=== PATIENT | male | born 1955 ===

== ENCOUNTER 2020-11-05 02:07 | Emergency (ER) | payer OTHER, SELFPAY ==
--- NOTE | ~2020-11-05 | XR_ITS ---
EXAMINATION: XR ABDOMEN KUB CLINICAL INDICATION: Lower abdominal pain. Question constipation. COMPARISON: None TECHNIQUE: AP view of the abdomen. FINDINGS: Nonobstructive bowel gas pattern. No dilated loops of bowel. Scattered gas and stool throughout the colon with mild colonic stool burden. Stool in the rectum. No acute osseous abnormality. XR/XR KUB IMPRESSION: Mild colonic stool burden with stool in the rectum.
[2020-11-05 02:08] VITALS: BP 184/113; PULSE 91; RESP 20; TEMP 36.9; O2SAT 98; BMI 27.9
[2020-11-05 02:27] LABS: Glucose, Whole Blood 165 mg/dL (60-115)
[2020-11-05 03:04] LABS: MANUAL DIFF FLAG NO
[2020-11-05 03:07] LABS: Basophils Percent Auto 0.3 % (0-2); Eosinophils Absolute Auto 0.2 X10*3/uL (0.0-0.4); Eosinophils Percent Auto 2.8 % (0-4); Hematocrit 36.4 % (42-52); Hemoglobin 12.3 g/dl (14.0-18.0); Imm Gran Abs Auto 0.04 X10*3/uL (0.00-0.03); Imm Gran Pct Auto 0.7 % (0.0-0.4); Lymphocytes Absolute Auto 1.6 X10*3/uL (1.2-4.9); Lymphocytes Percent Auto 26.6 % (20-40); Mean Corpuscular HGB Conc 33.8 g/dl (31.0-36.0); Mean Corpuscular Hemoglobin 29.1 pg (27.0-33.0); Mean Corpuscular Volume 86.3 fL (80-98); Mean Platelet Volume 10.1 fL (9.4-12.4); Monocytes Absolute Auto 0.6 X10*3/uL (0.1-1.2); Monocytes Percent Auto 9.1 % (2-11); Neutrophils Absolute Auto 3.7 X10*3/uL (2.0-8.3); Neutrophils Percent Auto 60.5 % (45-73); Platelet Count 199 X10*3/uL (160-400); Red Blood Count 4.22 X10*6/uL (4.60-5.80); Red Cell Distribution Width 12.3 % (11.0-16.0); White Blood Count 6.1 X10*3/uL (4.8-10.8)
[2020-11-05 03:09] LABS: Glucose Urine UA 100 MG/DL (NEG); Leukocyte Esterase Urine NEG (NEG); Nitrite Urine NEG (NEG); Specific Gravity - Urine 1.015 (1.005-1.025); Urine Blood NEG (NEG); Urine Ketones NEG (NEG); Urine Protein TRACE MG/DL (NEG-TRACE)
[2020-11-05 03:18] LABS: Appearance Urine CLEAR; Color Urine YELLOW
[2020-11-05 03:32] LABS: Alanine Aminotransferase 12 U/L (0-40); Albumin Level 4.2 g/dL (3.5-5.0); Alkaline Phosphatase 64 U/L (39-117); Anion Gap 18 (12-20); Aspartate Amino Transferase 15 U/L (5-37); Bilirubin Total 0.2 mg/dL (0.0-1.0); Blood Urea Nitrogen 19 mg/dL (9-16); Calcium 9.5 mg/dL (8.4-10.2); Carbon Dioxide 29 mmol/L (22-29); Chloride 97 mmol/L (96-108); Estimated Glomerular Filt Rate 47; Glucose Random 162 mg/dL (60-115); Potassium 3.5 mmol/L (3.3-5.1); Sodium 140 mmol/L (135-145); Total Protein 6.8 g/dL (6.5-8.0)
[2020-11-05 03:46] LABS: RBC Urine 0-2 /HPF (0); Squamous Epithelial Cell Urine TRACE /LPF; WBC Urine 0-2 /HPF (0-4)
--- NOTE | 2020-11-05 04:46 | ED.MALEGU ---
HPI - Male Genitourinary General Chief complaint: Urogenital-Male Stated complaint: diabetic/ urination problems Time Seen by Provider: 11/05/20 04:46 Source: patient Mode of arrival: ambulatory History of Present Illness HPI Narrative: 65-year-old male known diabetic and hypertensive presents with 2 days of bladder incontinence as well as lower abdominal pain and difficulty with having a bowel movement secondary to this pain. This is not been associated with fever, chills, nausea, vomiting, diarrhea. Patient states that this is never happened before. Review of Systems Review of Systems: Pertinent positives and negatives as stated in HPI 10 point review of systems is otherwise negative. PMFSH Past Medical History Source: nursing notes reviewed Medical History Diabetes HTN (hypertension) Social History Social History Advance Directives: No Advance Directives Information Provided: No Physical Exam Vital Signs: Vital Signs: Last Vital Signs Temp 98.4 F 11/05/20 02:08 Pulse 91 11/05/20 02:08 Resp 20 11/05/20 02:08 BP 184/113 H 11/05/20 02:08 Pulse Ox 98 11/05/20 02:08 Body Mass Index 27.9 VITAL SIGNS: Reviewed. GENERAL: Well developed, well nourished, in no acute distress. HEAD: Normocephalic/atraumatic EYES: PERRLA, EOMI LUNGS: Normal breath sounds. No adventitious sounds or accessory muscle use. SpO2<98> CARDIOVASCULAR: Regular rate and rhythm without noted murmurs ABDOMEN: Soft, non-tender, non-distended with bowel sounds. MUSCULOSKELETAL: No tenderness, deformities, or effusions noted on gross inspection. EXTREMITIES: No cyanosis, clubbing or edema. SKIN: Inspection of the skin reveals no rashes NEUROLOGIC: Alert and oriented x 4. Strength and sensation to light touch were grossly intact x 4. Course Course Course Narrative: Is a 65-year-old male with history and clinical presentation consistent with suspected overflow incontinence and on bladder scan was noted to have greater than a 1000 in his bladder and a catheter was placed with good return of clear yellow urine. Patient on re-evaluation states that he is feeling better and understands that the catheter will have to remain in place until he is evaluated by urology. On review of all investigations there are no acute findings from patient stated baseline. Patient is otherwise hemodynamically stable for discharge to home and recommendation of follow-up with his primary care provider and/or Urology. MDM - Male Genitourinary Lab Data Result diagrams: 11/05/20 03:00 11/05/20 03:00 Labs: Lab Results 11/05/20 11/05/20 11/05/20 Range/Units 02:20 03:00 03:00 WBC 6.1 (4.8-10.8) X10*3/uL RBC 4.22 L (4.60-5.80) X10*6/uL Hgb 12.3 L (14.0-18.0) g/dl Hct 36.4 L (42-52) % MCV 86.3 (80-98) fL MCH 29.1 (27.0-33.0) pg MCHC 33.8 (31.0-36.0) g/dl RDW 12.3 (11.0-16.0) % Plt Count 199 (160-400) X10*3/uL MPV 10.1 (9.4-12.4) fL Immature Gran % (Auto) 0.7 H (0.0-0.4) % Neut % (Auto) 60.5 (45-73) % Lymph % (Auto) 26.6 (20-40) % [place] % (Auto) 9.1 (2-11) % Eos % (Auto) 2.8 (0-4) % Baso % (Auto) 0.3 (0-2) % Lymph # (Auto) 1.6 (1.2-4.9) X10*3/uL [place] # (Auto) 0.6 (0.1-1.2) X10*3/uL Eos # (Auto) 0.2 (0.0-0.4) X10*3/uL Baso # (Auto) 0.0 (0.0-0.2) X10*3/uL Abs Immat Gran (auto) 0.04 H (0.00-0.03) X10*3/uL Absolute Neuts (auto) 3.7 (2.0-8.3) X10*3/uL Absolute Nucleated RBC 0.000 (0.0-0.012) X10*3/uL Nucleated RBC % (auto) 0.0 (0.0-0.2) /100WBC Sodium 140 (135-145) mmol/L Potassium 3.5 (3.3-5.1) mmol/L Chloride 97 (96-108) mmol/L Carbon Dioxide 29 (22-29) mmol/L Anion Gap 18 (12-20) BUN 19 H (9-16) mg/dL Creatinine 1.49 H (0.5-1.4) mg/dL Estim Creat Clear Calc 56.0 Estimated GFR 47 POC Glucose 165 H (60-115) mg/dL Random Glucose 162 H (60-115) mg/dL Calcium 9.5 (8.4-10.2) mg/dL Total Bilirubin 0.2 (0.0-1.0) mg/dL AST 15 (5-37) U/L ALT 12 (0-40) U/L Alkaline Phosphatase 64 (39-117) U/L Total Protein 6.8 (6.5-8.0) g/dL Albumin 4.2 (3.5-5.0) g/dL Urine Color Urine Appearance Urine pH (5.0-8.0) Ur Specific [place] (1.005-1.025) Urine Protein (NEG-TRACE) MG/DL Urine Glucose (UA) (NEG) MG/DL Urine Ketones (NEG) MG/DL Urine Blood (NEG) Urine Nitrite (NEG) Ur Leukocyte Esterase (NEG) Urine RBC (0) /HPF Urine WBC (0-4) /HPF Ur Squamous Epith Cells /LPF Urine Bacteria /LPF 11/05/20 Range/Units 03:00 WBC (4.8-10.8) X10*3/uL RBC (4.60-5.80) X10*6/uL Hgb (14.0-18.0) g/dl Hct (42-52) % MCV (80-98) fL MCH (27.0-33.0) pg MCHC (31.0-36.0) g/dl RDW (11.0-16.0) % Plt Count (160-400) X10*3/uL MPV (9.4-12.4) fL Immature Gran % (Auto) (0.0-0.4) % Neut % (Auto) (45-73) % Lymph % (Auto) (20-40) % [place] % (Auto) (2-11) % Eos % (Auto) (0-4) % Baso % (Auto) (0-2) % Lymph # (Auto) (1.2-4.9) X10*3/uL [place] # (Auto) (0.1-1.2) X10*3/uL Eos # (Auto) (0.0-0.4) X10*3/uL Baso # (Auto) (0.0-0.2) X10*3/uL Abs Immat Gran (auto) (0.00-0.03) X10*3/uL Absolute Neuts (auto) (2.0-8.3) X10*3/uL Absolute Nucleated RBC (0.0-0.012) X10*3/uL Nucleated RBC % (auto) (0.0-0.2) /100WBC Sodium (135-145) mmol/L Potassium (3.3-5.1) mmol/L Chloride (96-108) mmol/L Carbon Dioxide (22-29) mmol/L Anion Gap (12-20) BUN (9-16) mg/dL Creatinine (0.5-1.4) mg/dL Estim Creat Clear Calc Estimated GFR POC Glucose (60-115) mg/dL Random Glucose (60-115) mg/dL Calcium (8.4-10.2) mg/dL Total Bilirubin (0.0-1.0) mg/dL AST (5-37) U/L ALT (0-40) U/L Alkaline Phosphatase (39-117) U/L Total Protein (6.5-8.0) g/dL Albumin (3.5-5.0) g/dL Urine Color YELLOW Urine Appearance CLEAR Urine pH 6.0 (5.0-8.0) Ur Specific [place] 1.015 (1.005-1.025) Urine Protein TRACE (NEG-TRACE) MG/DL Urine Glucose (UA) 100 H (NEG) MG/DL Urine Ketones NEG (NEG) MG/DL Urine Blood NEG (NEG) Urine Nitrite NEG (NEG) Ur Leukocyte Esterase NEG (NEG) Urine RBC 0-2 (0) /HPF Urine WBC 0-2 (0-4) /HPF Ur Squamous Epith Cells TRACE /LPF Urine Bacteria NONE /LPF Discharge Plan Discharge Clinical Impression: Urinary retention Patient Disposition: Home, Self-Care Instructions: Urinary Retention in Men (ED), Cutler Catheter Placement and Care (ED) Additional Instructions: 1. Recommend resuming all home medications as prescribed. 2. Please contact your primary care provider for re-evaluation on Saturday. 3. You have been provided with a referral to Urology and should call them Saturday for further outpatient management. Return to the ER for acute worsening of symptoms. Referrals: Alesha Ugarte PA [Primary Care Provider] - 2 days Avery Araya MD [Physician] - 2 days (Evaluation of patient with onset of urinary retention, Cutler catheter is in place, urinalysis negative for hematuria or infection.)
--- NOTE | 2020-11-05 05:42 | PC.NURSE ---
PT FEELING RELIEF FOLLOWING CATHETER INSERTION. LEG BAG PLACED, PT EDUCATED ON HOW TO EMPTY. PT UNDERSTANDS TO FOLLOW UP WITH UROLOGIST.
== END 2020-11-05 05:44 | disposition home or self-care (01) ==
PROVIDERS: Emergency Provider Student in an Organized Health Care Education/Training Program; PCP Physician Assistant Medical
DX: R33.9 Retention of urine, unspecified (principal); R10.30 Lower abdominal pain, unspecified; E11.9 Type 2 diabetes mellitus without complications; I10 Essential (primary) hypertension
CPT/HCPCS: 36415; 51702; 74018; 80053; 81001; 82947; 85025; 99283; 99284

== ENCOUNTER 2020-11-06 13:12 | Emergency (ER) | payer OTHER, SELFPAY ==
[2020-11-06 13:19] VITALS: BP 125/69; PULSE 100; RESP 18; O2SAT 100; BMI 27.2
--- NOTE | 2020-11-06 15:20 | ED_ITS ---
HPI - Male Genitourinary General Chief complaint: Urogenital-Male Stated complaint: urination/cath Time Seen by Provider: 11/06/20 15:20 Source: patient Mode of arrival: ambulatory Limitations: no limitations History of Present Illness HPI Narrative: 65-year-old male presents for leakage around catheter and pain in his penis. Patient had Cutler catheter placed yesterday for urinary retention. Yesterday patient had 2 days of bladder incontinence on lower abdominal pain. Bladder scan showed 1000 mL of urine, Cutler catheter placed, patient to follow- up with urology on Saturday. Patient states that since the Cutler is placed, he has been leaking urine around the catheter. No fevers, regular bowel movements. Nursing today checked the catheter balloon, repositioned above Cutler. He does not have pain in his penis now, but he is still leaking urine around the catheter. Her past medical history of diabetes and hypertension MD Complaint: other (Leaking around Cutler catheter) Onset (ago): day(s) (1) Duration: constant Location: penis Related Data Allergies Allergy/AdvReac Type Severity Reaction Status Date / Time No Known Allergies Allergy Verified 11/06/20 16:22 Review of Systems Constitutional: Constitutional: Denies body ache(s), Denies chills, Denies fatigue, Denies fever(s), Denies headache(s), Denies malaise and Denies weakness Eyes: Eyes: Denies diplopia ENT: Denies vertigo, Denies dizziness, Denies otalgia, Denies headache(s), Denies mouth pain, Denies post nasal drip, Denies sinus pain, Denies sinus pressure, Denies sore throat and Denies throat swelling Cardiovascular: Cardiovascular: Denies chest pain, Denies syncope, Denies leg edema, Denies lightheadedness, Denies Loss of Consciousness, Denies palpitations and Denies dyspnea Respiratory: Respiratory: Denies chest congestion, Denies cough and Denies dyspnea Gastrointestinal: Gastrointestinal: Denies abdominal pain, Denies he matochezia, Denies constipation, Denies diarrhea and Denies vomiting Genitourinary: Genitourinary: Denies hematuria, Denies dysuria and Denies fla nk pain Comments: Leaking urine around the Cutler catheter Musculoskeletal: Musculoskeletal: Reports no additional musculoskeletal complaints Integumentary/Breasts: Skin/Breast: Denies erythema and Denies rash Neurologic: Denies confusion, Denies vertigo, Denies dizziness, Denies syncope, Denies headache(s) and Denies weakness Psychiatric: Psychiatric: Denies anxiety, Denies confusion and Denies depression Endocrine: Endocrine: Denies fatigue and Denies palpitations Allergic/Immunologic: Allergic/Immunologic: Denies throat swelling [facility] Past Medical History Medical History (Updated 11/06/20 @ 19:39 by FATEMEH Jeter) Diabetes Glaucoma HTN (hypertension) Social History Social History Alcohol intake: never Patient Tobacco Use Status: Never used Tobacco Use of substances other than those prescribed or required for medical reasons: No Advance Directives: No Advance Directives Information Provided: No Physical Exam Vital Signs: Vital Signs: Last Vital Signs Temp 98.9 F 11/06/20 18:33 Pulse 101 H 11/06/20 18:33 Resp 16 11/06/20 18:33 BP 149/89 H 11/06/20 18:33 Pulse Ox 96 11/06/20 18:33 Body Mass Index 27.2 Const: General: No confusion Nutritional Appearance: well nourished Orientation/consciousness: No confusion Limitations: no limitations Eyes: Conjunctivae: conjunctivae normal Pupils: Equal, round and reactive pupils present EOM: EOMs intact bilaterally Resp: Effort & Inspection: normal respiratory effort and able to speak in complete sentences Auscultation: clear to auscultation bilaterally, no crackles, no rales, no rhonchi and no wheezes Cardio: Rate: regular rate Rhythm: regular rhythm Heart sounds: S1 normal heart sound present and S2 normal heart sound present GI: Inspection: Yes normal to inspection Palpation (GI): Soft to palpation, nontender, no guarding and not rigid Percussion: Yes normal to percussion Auscultation: normal bowel sounds : Male General Exam: Yes normal external exam, No edema, No erythema, No hernia and No inguinal lymphadenopathy Penis: normal penis, circumcised, not edematous, not erythematous, no papules, no pustules, no swelling and no ulcerations Meatus: meatus normal and No Blood at meatus present Scrotum: scrotum normal, no ecchymosis, not edematous and not erythematous Testes: Testes normal, no testicular mass, no testicular swelling and no testicular tenderness Skin: General skin exam: no rashes or lesions noted Neuro: General: No confusion Cranial nerves: Yes Equal, round and reactive pupils present Extrem: General: Yes normal to inspection and Yes full ROM Psych: Appearance: grossly normal Affect: normal affect Attitude: cooperative Thought process: Normal thought process present Course Course Course Narrative: 65-year-old male here for voiding urine around catheter that was placed yesterday for urinary retention Despite nurse's attempts to reposition catheter and reinflate the balloon, patient is still voiding around the catheter. Will give fluids, get urine analysis, do trial to void and get post void bladder scan. After trouble voiding, patient has 230 mL in his bladder that he cannot void. We will replace catheter. UA shows hematuria, no significant infection. New catheter placed. Patient is draining urine. Gave return precautions of urinary retention, pain, fever. Gave phone number to call [facility] tomorrow. Patient verbalized agreement and understanding of the plan. MDM - Male Genitourinary Lab Data Labs: Lab Results 11/06/20 Range/Units 18:39 Urine Color YELLOW Urine Appearance HAZY Urine pH 5.5 (5.0-8.0) Ur Specific [place] 1.020 (1.005-1.025) Urine Protein 1+ H (NEG-TRACE) MG/DL Urine Glucose (UA) NEG (NEG) MG/DL Urine Ketones NEG (NEG) MG/DL Urine Blood 3+ H (NEG) Urine Nitrite NEG (NEG) Ur Leukocyte Esterase TRACE H (NEG) Urine RBC 30-49 H (0) /HPF Urine WBC 1-4 (0-4) /HPF Ur Squamous Epith Cells 3+ /LPF Urine Bacteria NONE /LPF Hyaline Casts 0-2 /LPF Discharge Plan Discharge Clinical Impression: Displacement of Cutler catheter Qualifiers: Encounter type: initial encounter Qualified Code(s): T83.021A - Displacement of indwelling urethral catheter, initial encounter Patient Disposition: Home, Self-Care Instructions: Cutler Catheter Placement and Care (ED) Additional Instructions: Please call Urology tomorrow.[phone] Please return to emergency room if you have pain in the bladder, nausea or vomiting, fevers, or your catheter is not draining urine. Referrals: Gavin Escobar MD [Physician] - 2 days (urinary retention)
[2020-11-06 15:29] VITALS: BP 148/88; PULSE 92; RESP 18; TEMP 36.5; O2SAT 99
--- NOTE | 2020-11-06 15:33 | PC.NURSE ---
patient a&ox3, vss, pt c/o 08/01 penile pain related to cath, pt awaiting provider, will continue to monitor.
--- NOTE | 2020-11-06 16:07 | PC.NURSE ---
PATIENT WAS GIVEN TUNA SANDWICH AND DIET AYSE LEXI .
[2020-11-06] MEDS: 0.9 % Sodium Chloride 1,000 ML 999 ML IV (17:24)
[2020-11-06 18:33] VITALS: BP 149/89; PULSE 101; RESP 16; TEMP 37.2; O2SAT 96
[2020-11-06 18:52] LABS: Glucose Urine UA NEG (NEG); Leukocyte Esterase Urine TRACE (NEG); Nitrite Urine NEG (NEG); PH 5.5 (5.0-8.0); Urine Blood 3+ (NEG); Urine Ketones NEG (NEG); Urine Protein 1+ MG/DL (NEG-TRACE)
[2020-11-06 18:56] LABS: Appearance Urine HAZY; Color Urine YELLOW
[2020-11-06 19:01] LABS: Hyaline Casts Urine 0-2 /LPF; RBC Urine 30-49 /HPF (0); Squamous Epithelial Cell Urine 3+ /LPF
--- NOTE | 2020-11-06 20:05 | PC.NURSE ---
pt difficult stick, iv was insterted, pt was given hydration to promote urination, leaking perea cath was removed. pt did a trial void- post void bladder scan was performed and pt was retaining urine. provider was notified, pt had 18F perea reinserted- pt tolerated procedure well, pt had 400 output after perea reinserted, perea bag changed to a leg bag to discharge. pt tolerated well.
== END 2020-11-06 20:07 | disposition home or self-care (01) ==
PROVIDERS: Physician Assistant; Emergency Provider Emergency Medicine
DX: T83.021A Displacement of indwelling urethral catheter, initial encounter (principal); R33.9 Retention of urine, unspecified; Y73.8 Miscellaneous gastroenterology and urology devices associated with adverse incidents, not elsewhere classified; Y92.9 Unspecified place or not applicable; Z79.899 Other long term (current) drug therapy
CPT/HCPCS: 51798; 81001; 96360; 99284; 99285

== ENCOUNTER 2020-11-08 15:16 | Emergency (ER) | payer OTHER, SELFPAY ==
[2020-11-08 16:23] VITALS: BP 177/102; PULSE 80; RESP 18; TEMP 36.9; O2SAT 100; BMI 27.2
== END 2020-11-08 19:24 | disposition left against medical advice (07) ==
PROVIDERS: Emergency Provider Emergency Medicine
DX: R10.9 Unspecified abdominal pain (principal); T83.038A Leakage of other urinary catheter, initial encounter
CPT/HCPCS: 99281

== ENCOUNTER 2020-11-10 03:13 | Emergency (ER) | payer OTHER, SELFPAY ==
[2020-11-10 04:14] VITALS: BP 159/103; PULSE 71; RESP 16; TEMP 36.6; O2SAT 99; BMI 27.2
[2020-11-10 06:00] VITALS: BP 166/102; PULSE 62; RESP 15; TEMP 36.6; O2SAT 99
--- NOTE | 2020-11-10 07:42 | ED_ITS ---
HPI - Male Genitourinary General Chief complaint: Urogenital-Male Stated complaint: catheter issues Time Seen by Provider: 11/10/20 07:42 Source: patient Mode of arrival: ambulatory Limitations: no limitations History of Present Illness HPI Narrative: Patient's history of prostate enlargement was seen here on 11/05 for acute retention of urine and Cutler catheter was placed since then patient complaining of pain when he urinates although his urinating well and bladder is empty. No fever no chills , no hematuria patient was seen here on 11/06 of also a new catheter was placed is still feeling the same planning to see urologist soon Related Data Previous Rx's Medication Instructions Recorded tamsulosin 0.4 mg capsule (Flomax) 0.4 mg PO DAILY #30 cap 11/10/20 Allergies Allergy/AdvReac Type Severity Reaction Status Date / Time No Known Allergies Allergy Verified 11/08/20 16:22 Review of Systems Review of Systems: Yes all other systems are reviewed and are negative [facility] Past Medical History Medical History Diabetes Glaucoma HTN (hypertension) Social History Social History Alcohol intake: unknown Patient Tobacco Use Status: Never used Tobacco Use of substances other than those prescribed or required for medical reasons: Unknown Advance Directives: No Advance Directives Information Provided: Yes Physical Exam Vital Signs: Vital Signs: Last Vital Signs Temp 97.9 F 11/10/20 06:00 Pulse 62 11/10/20 06:00 Resp 15 11/10/20 06:00 BP 166/102 H 11/10/20 06:00 Pulse Ox 99 11/10/20 06:00 Body Mass Index 27.2 Appearance: Alert. Oriented X3. No acute distress. ENT: Pharynx normal. Oral Mucosa moist Neck: Normal inspection. Neck supple. CVS: Normal heart rate and rhythm. Pulses normal. Respiratory: No respiratory distress. Equal air entry bilateral, no wheezing/rales/rhonchi Abdomen: Soft and nontender. Bowel sounds are present, no mass palpable, no CVA tenderness Rectal: Enlarged prostate nontender Skin: Skin warm and dry. Normal skin color. Normal skin turgor. Extremities: No lower extremity edema. No calf tenderness Neuro: Oriented X 3. MDM - Male Genitourinary MDM Narrative Medical decision making narrative: Cutler catheter was removed patient able urinate in the ER feeling much better will start on Flomax advised to follow-up with urologist Discharge Plan Discharge Clinical Impression: Benign prostatic hyperplasia (BPH) with post-void dribbling Patient Disposition: Home, Self-Care Instructions: Enlarged Prostate (BPH) (ED) Additional Instructions: Take medication as prescribed and follow with urologist as scheduled Report to the ER if unable to urinate Prescriptions: New tamsulosin [Flomax] 0.4 mg capsule 0.4 mg PO DAILY Qty: 30 RF: 1 Referrals: Gavin Escobar MD [Physician] - 1 week
[2020-11-10] MEDS: Tamsulosin HCL 0.4 MG CAPSULE PO (08:19)
[2020-11-10] MEDS: traMADoL HCL 50 MG TABLET PO (08:20)
== END 2020-11-10 09:14 | disposition home or self-care (01) ==
PROVIDERS: Emergency Provider Internal Medicine
DX: N40.0 Benign prostatic hyperplasia without lower urinary tract symptoms (principal); N39.43 Post-void dribbling; E11.9 Type 2 diabetes mellitus without complications; I10 Essential (primary) hypertension; Z46.6 Encounter for fitting and adjustment of urinary device
CPT/HCPCS: 51798; 99283; 99285

== ENCOUNTER → 2020-11-22 10:33 | Outpatient (BNVA) | payer OTHER, SELFPAY | PROVIDERS: Visit Provider Urology | DX: N40.1 Benign prostatic hyperplasia with lower urinary tract symptoms (principal); N13.8 Other obstructive and reflux uropathy; R39.12 Poor urinary stream; E11.9 Type 2 diabetes mellitus without complications; I10 Essential (primary) hypertension | CPT/HCPCS: 51798; 99202 ==

== ENCOUNTER 2021-02-27 10:28 | Outpatient (REF) | payer OTHER, SELFPAY ==
[2021-02-27 12:39] LABS: PSA,Total (Free>4and<10) 9.24 ng/mL (0.00-4.00)
[2021-02-28 12:41] LABS: Free Prostate Spec Ag 1.2 ng/mL; Percent Free Prostate Spec Ag 13 % (calc) (>25); Prostate Specific Ag Total 9.6 ng/mL (< OR = 4.0)
== END 2021-02-27 10:29 | disposition home or self-care (01) ==
LOC: HO.LAB 10:28
PROVIDERS: PCP Physician Assistant Medical; Visit Provider Urology
DX: N40.1 Benign prostatic hyperplasia with lower urinary tract symptoms (principal); N13.8 Other obstructive and reflux uropathy; Z12.5 Encounter for screening for malignant neoplasm of prostate
CPT/HCPCS: 36415; 84153; 84154

== ENCOUNTER → 2021-03-08 13:07 | Outpatient (BNVA) | payer OTHER, SELFPAY | PROVIDERS: PCP Physician Assistant Medical; Visit Provider Urology ==

== ENCOUNTER 2021-06-06 09:44 | Outpatient (REF) | payer MEDICARE, MEDICAID, SELFPAY ==
[2021-06-06 11:17] LABS: PSA,Total (Free>4and<10) 7.48 ng/mL (0.00-4.00)
[2021-06-07 12:25] LABS: Free Prostate Spec Ag 0.8 ng/mL; Percent Free Prostate Spec Ag 13 % (calc) (>25); Prostate Specific Ag Total 6.1 ng/mL (< OR = 4.0)
== END 2021-06-06 09:45 | disposition home or self-care (01) ==
LOC: HO.LAB 09:44
PROVIDERS: Visit Provider Urology
DX: Z12.5 Encounter for screening for malignant neoplasm of prostate (principal); N40.1 Benign prostatic hyperplasia with lower urinary tract symptoms; N13.8 Other obstructive and reflux uropathy; R97.20 Elevated prostate specific antigen [PSA]
CPT/HCPCS: 36415; 84153; 84154

== ENCOUNTER → 2021-06-16 11:08 | Outpatient (BNVA) | payer MEDICARE, MEDICAID, SELFPAY | PROVIDERS: PCP Physician Assistant Medical; Visit Provider Urology | DX: R97.20 Elevated prostate specific antigen [PSA] (principal); N40.1 Benign prostatic hyperplasia with lower urinary tract symptoms; N13.8 Other obstructive and reflux uropathy; Z79.899 Other long term (current) drug therapy | CPT/HCPCS: Q3014 ==

== ENCOUNTER 2021-11-07 09:47 | Outpatient (REF) | payer OTHER, SELFPAY ==
[2021-11-07 11:23] LABS: PSA,Total (Free>4and<10) 6.67 ng/mL (0.00-4.00)
[2021-11-08 09:33] LABS: Free Prostate Spec Ag 0.8 ng/mL; Percent Free Prostate Spec Ag 11 % (calc) (>25)
== END 2021-11-07 09:48 | disposition home or self-care (01) ==
LOC: HO.LAB 09:47
PROVIDERS: PCP Physician Assistant Medical; Visit Provider Urology
DX: Z12.5 Encounter for screening for malignant neoplasm of prostate (principal); R97.20 Elevated prostate specific antigen [PSA]
CPT/HCPCS: 36415; 84153; 84154

== ENCOUNTER → 2021-12-26 15:05 | Outpatient (BNVA) | payer OTHER, SELFPAY | PROVIDERS: PCP Physician Assistant Medical; Visit Provider Urology | DX: R97.20 Elevated prostate specific antigen [PSA] (principal); N40.1 Benign prostatic hyperplasia with lower urinary tract symptoms; R39.12 Poor urinary stream; N13.8 Other obstructive and reflux uropathy | CPT/HCPCS: 99212 ==

== ENCOUNTER 2022-02-13 07:37 | Outpatient (REF) | payer OTHER, SELFPAY ==
[2022-02-13 07:51] VITALS: BMI 25.1
[2022-02-13 07:52] VITALS: BP 121/82; PULSE 80; RESP 16; TEMP 37.2; O2SAT 98
--- NOTE | 2022-02-13 08:34 | W.PM.OPN ---
Operative Note Operative Note Date of Service: 02/13/22 Narrative: Preoperative diagnosis: Elevated PSA Postoperative diagnosis: Elevated PSA Procedure: 1. transrectal ultrasound measurement of prostate 2. transrectal ultrasound-guided pudendal nerve block 3. transrectal ultrasound-guided prostate biopsy 12 core Surgeon: Dr. Gavin Escobar Anesthetic: Local Indications for procedure: Elevated PSA Procedure: After informed consent was verified, the patient was brought into the procedure area and lay left-hand side down on the table. Patient identity confirmed. Perioperative antibiotics confirmed. Safety pause time out performed. KELBY performed to dilate rectal sphincter Iodine 10cc with Gel was placed per rectum Ultrasound probe was placed per rectum The prostate was measured in 3 dimensions Total volume equals 70 gm No cystic structures were noted No calcifications were noted at the surgical margin The prostate was otherwise homogeneous in nature An ultrasound-guided pudendal nerve block was performed using 10 cc of 1% lidocaine. 8 cc was placed at the base and 2 cc of the apex. A 12 core biopsy was performed with 6 cores each side. Two cores were taken at the apex, mid and base. Cores were spaced between lateral and medial. He tolerated the procedure well. Was able to ambulate to bathroom after 5 minutes. Printed instructions regarding antibiotic use and common side effects such as low-grade temperature, potential infection and bleeding were given Pathology: 12 core prostate biopsy.
[2022-02-13 08:54] VITALS: BP 146/89; PULSE 79; RESP 16; O2SAT 98
== END 2022-02-13 07:38 | disposition home or self-care (01) ==
LOC: HO.MS 07:37
PROVIDERS: PCP Physician Assistant Medical; Visit Provider Urology
PROC: (CPT 55700; principal; 2022-02-13 08:00)
DX: C61 Malignant neoplasm of prostate (principal); R97.20 Elevated prostate specific antigen [PSA]
CPT/HCPCS: 55700; 76942; 88305; 88344

== ENCOUNTER → 2022-02-23 13:39 | Outpatient (BNVA) | payer OTHER, SELFPAY | PROVIDERS: PCP Physician Assistant Medical; Visit Provider Urology | DX: C61 Malignant neoplasm of prostate (principal); N40.1 Benign prostatic hyperplasia with lower urinary tract symptoms; N13.8 Other obstructive and reflux uropathy; R39.12 Poor urinary stream; Z98.890 Other specified postprocedural states | CPT/HCPCS: Q3014 ==

== ENCOUNTER → 2022-03-23 14:17 | Outpatient (BNVA) | payer OTHER, SELFPAY | PROVIDERS: PCP Physician Assistant Medical; Visit Provider Urology | DX: C61 Malignant neoplasm of prostate (principal) | CPT/HCPCS: Q3014 ==

== ENCOUNTER 2022-07-12 13:27 | Outpatient (REF) | payer OTHER, SELFPAY ==
[2022-07-12 14:59] LABS: PSA,Total (Free>4and<10) 5.79 ng/mL (0.00-4.00)
[2022-07-16 12:48] LABS: Free Prostate Spec Ag 0.8 ng/mL; Percent Free Prostate Spec Ag 13 % (calc) (>25)
== END 2022-07-12 13:28 | disposition home or self-care (01) ==
LOC: HO.LAB 13:27
PROVIDERS: Visit Provider Urology
DX: C61 Malignant neoplasm of prostate (principal); Z12.5 Encounter for screening for malignant neoplasm of prostate
CPT/HCPCS: 36415; 84153; 84154

== ENCOUNTER 2023-04-24 15:36 | Outpatient (AMB) | payer OTHER, SELFPAY ==
--- NOTE | 2023-04-24 15:41 | MHC.OFFVIS ---
Intake Intake Visit Reasons: 4M PSA(set) Intake Note: Patient is Present for Follow Up PSA Urology Medication: Finasteride, Tamsulosin Antibiotic Allergies: none Blood Thinners: None Allergies No Known Allergies Allergy (Verified 03/23/22 14:18) Medication List - Last Reconciled 04/24/23 by Gavin Escobar MD bimatoprost 0.01% (Lumigan) 1 drp ophthalmic-Right BEDTIME brimonidine 0.2% 1 drp ophthalmic-Right finasteride 5 mg PO DAILY 90 days hydrochlorothiazide 25 mg PO DAILY hydrochlorothiazide 50 mg PO DAILY lancets (FreeStyle Lancets) As directed latanoprost 0.005% 0 drps ophthalmic (eye) levofloxacin 500 mg PO DAILY 2 days lisinopril 20 mg PO DAILY lisinopril 40 mg PO QAM metformin 1,000 mg PO BID metoprolol succinate ER 50 mg PO DAILY tamsulosin (Flomax) 0.4 mg PO DAILY 30 days HPI HPI Comments History of Present Illness Details Clint is a pleasant male. He is a patient of Dr. Fink. He is seen for the following urologic conditions - lower urinary tract symptoms episode of urinary retention - Prostate cancer Continue good control PSA now and 4 months Four month follow-up MRI prostate Lower urinary tract symptoms Initial symptoms - Progressive weakness of stream, Nocturia times 2-3 Current Symptoms - mild nocturia 1-2x, good daytime urinary control Current medications with finasteride and tamsulosin Prostate Cancer - Grade Group 1, T1c 02/[address] Escobar 11/13 PSA 6.8 11% on finasteride, 07/15 5.8 TRUS 70gm Histologic type: Adenocarcinoma, acinar type [place] score: 3+3=6 LBL 30% Periprostatic fat inv.: Not identified, Seminal vesicle inv.: Not identified, Perineural inv.: Present, LVI: Not identified Genetics - 03/15 Prolaris - Low risk suitable for active surveillance [facility] Medical History Glaucoma HTN (hypertension) Diabetes Social History Alcohol intake: current Alcohol intake frequency: holidays/special occasions only Patient Tobacco Use Status: Never used Tobacco Review of Systems Const Denies chills and Denies fever(s) Card Reports no additional complaints and Denies syncope Resp Denies cough GI Denies abdominal pain and Denies heartburn Reports as per HPI and Denies change in libido Neuro Denies syncope Psych Denies change in libido Endo Denies change in libido Physical Exam Const General: cooperative, healthy appearing, comfortable and no acute distress Orientation/consciousness: patient oriented x3 HEENT Face and sinus: Yes normal facial exam Mouth: moist mucous membranes Neck Neck: Yes normal visual inspection, Yes full ROM and Yes trachea midline Chest Chest palpation & inspection: normal inspection of the chest Resp Effort & Inspection: normal respiratory effort, able to speak in complete sentences and no respiratory distress GI Inspection: Yes normal to inspection Back/Spine/Pelvis Cervical Spine: normal cervical lordosis Thoracic/Lumbar Spine: thoracic and lumbar spine normal to inspection Skin General skin exam: no rashes or lesions noted Neuro General: patient oriented x3, gait normal, tone normal and moves all extremities Extrem General: Yes normal to inspection and Yes capillary refill normal Assessment & Plan Assessment & Plan (1) Prostate cancer: Comment: 02/13 low volume, low risk disease enlarged prostate Code(s): C61 - Malignant neoplasm of prostate (2) Elevated PSA: Code(s): R97.20 - Elevated prostate specific antigen [PSA] Plan Today in 4 month follow-up PSA and MRI Orders: Orders Prostate Specific Antigen 4 Months C61 - Malignant neoplasm of prostate Creatinine 4 Months C61 - Malignant neoplasm of prostate MR pelvis wo/w con 4 Months C61 - Malignant neoplasm of prostate Prostate Specific Antigen 04/24/23 C61 - Malignant neoplasm of prostate, E11.69 - Type 2 diabetes mellitus with other specified complication, N52.1 - Erectile dysfunction due to diseases classified elsewhere Blood Urea Nitrogen 4 Months C61 - Malignant neoplasm of prostate Patient Instructions: Imaging studies, laboratory and physical exam results were discussed and reviewed in detail. No major barriers to patient understanding were identified. An opportunity to ask questions regarding the treatment plan was provided. All questions were answered. The patient expressed understanding and agreement with the above treatment plan. The patient is aware they should contact our office by phone for worsening of their current condition or the appearance of new urologic symptoms. Compliance is encouraged with any medications and followup testing that is ordered. It is a privilege to participate in the urologic care of your patient. If you have any questions or concerns regarding treatment for the above conditions, or other urologic issues, please do not hesitate to contact me. The office telephone contact is [phone]. This note is constructed using voice recognition software. While every effort has been made to ensure accuracy data analysis assistant errors may have been included. Yours sincerely, Dr Gavin Escobar MD, [facility] - Urology Providers of Expert, Compassionate Care for the Genitourinary System Coding Level of Care Code Est Pt Level 4 (11604) Diagnoses Prostate cancer C61 Elevated PSA R97.20
== END 2023-04-24 16:02 | disposition home or self-care (01) ==
LOC: HO.HUSH 15:36
PROVIDERS: PCP Physician Assistant Medical; Visit Provider Urology
DX: C61 Malignant neoplasm of prostate (principal); R97.20 Elevated prostate specific antigen [PSA]
CPT/HCPCS: 99214

== ENCOUNTER → 2023-04-24 15:36 | Outpatient (BNVA) | payer OTHER, SELFPAY | PROVIDERS: PCP Physician Assistant Medical; Visit Provider Urology | DX: C61 Malignant neoplasm of prostate (principal); R97.20 Elevated prostate specific antigen [PSA] | CPT/HCPCS: 99212 ==

== ENCOUNTER 2023-07-23 15:40 | Outpatient (REF) | payer OTHER, SELFPAY ==
[2023-07-23 18:16] LABS: Blood Urea Nitrogen 19 mg/dL (9-16); Estimated Glomerular Filt Rate 43
[2023-07-23 18:35] LABS: PSA,Total (Free>4and<10) 7.52 ng/mL (0.00-4.00); Prostate Specific Antigen 7.61 ng/mL (<0.05-4.0)
[2023-07-25 12:48] LABS: Free Prostate Spec Ag 0.7 ng/mL; Percent Free Prostate Spec Ag 8 % (calc) (>25); Prostate Specific Ag Total 8.6 ng/mL (< OR = 4.0)
== END 2023-07-23 15:41 | disposition home or self-care (01) ==
LOC: HO.LAB 15:40
PROVIDERS: PCP Physician Assistant Medical; Visit Provider Urology
DX: E11.69 Type 2 diabetes mellitus with other specified complication (principal); N52.1 Erectile dysfunction due to diseases classified elsewhere; C61 Malignant neoplasm of prostate
CPT/HCPCS: 36415; 82565; 84153; 84154; 84520

== ENCOUNTER 2023-07-25 15:03 | Outpatient (AMB) | payer OTHER, SELFPAY ==
--- NOTE | 2023-07-25 15:18 | A.OFFVIS_ITS ---
Intake Visit Reasons: 4M PSA/MRI([place]re/PSA?) Allergies No Known Allergies Allergy (Verified 03/23/22 14:18) Medication List - Last Reconciled 07/25/23 by Gavin Escobar MD bimatoprost 0.01% (Lumigan) 1 drp ophthalmic-Right BEDTIME brimonidine 0.2% 1 drp ophthalmic-Right finasteride 5 mg PO DAILY 90 days hydrochlorothiazide 25 mg PO DAILY hydrochlorothiazide 50 mg PO DAILY lancets (FreeStyle Lancets) As directed latanoprost 0.005% 0 drps ophthalmic (eye) levofloxacin 500 mg PO DAILY 2 days lisinopril 20 mg PO DAILY lisinopril 40 mg PO QAM metformin 1,000 mg PO BID metoprolol succinate ER 50 mg PO DAILY tamsulosin (Flomax) 0.4 mg PO DAILY 90 days HPI Comments Details: Clint is a pleasant male. He is a patient of Dr. Fink. He is seen for the following urologic conditions - lower urinary tract symptoms episode of urinary retention - Prostate cancer - medical care is part of ongoing therapy related to a complex condition Telemedicine Evaluation 15 min Consultation Andre Phillipe Michael Video attempted PSA has advanced - 8.6 8% Prostate MRI shows increased size of lesion with posterior medial left peripheral zone 1.2 cm PI-RADS 4, right anterior transition zone 2.1 cm PI-RADS 5 Plan repeat prostate biopsy Patient also states diarrhea past 3 weeks Has had stool test with PCP in office 3 days ago Gave 5 days of metronidazole Lower urinary tract symptoms Initial symptoms - Progressive weakness of stream, Nocturia times 2-3 Current Symptoms - mild nocturia 1-2x, good daytime urinary control Current medications with finasteride and tamsulosin Prostate Cancer - Grade Group 1, T1c 02/[address] Escobar 11/13 PSA 6.8 11% on finasteride, 07/15 5.8, 07/16 7.6 8% TRUS 70gm Histologic type: Adenocarcinoma, acinar type Charisma score: 3+3=6 LBL 30% Periprostatic fat inv.: Not identified, Seminal vesicle inv.: Not identified, Perineural inv.: Present, LVI: Not identified Genetics - 03/15 Prolaris - Low risk suitable for active surveillance PFS Medical History Glaucoma HTN (hypertension) Diabetes Social History Alcohol intake: current Alcohol intake frequency: holidays/special occasions only Patient Tobacco Use Status: Never used Tobacco Review of Systems Const All systems reviewed & are unremarkable except as noted in HPI and below Denies chills and Denies fever(s) Card Reports no additional complaints and Denies syncope Resp Denies cough GI Denies abdominal pain and Denies heartburn Reports as per HPI and Denies change in libido Musc Reports no additional complaints Neuro Denies syncope Psych Denies change in libido Endo Denies change in libido Physical Exam Telemedicine evaluation Appropriate responses Regular breathing rate and rhythm HEENT Head: Yes normal to inspection Ears: hearing grossly normal bilaterally Eyes General: appearance normal, both eyes and all related structures Neck Neck: Yes normal visual inspection Chest Chest palpation & inspection: normal inspection of the chest Resp Effort & Inspection: normal respiratory effort and able to speak in complete sentences Telehealth Telehealth Telehealth Platform: Andre Phillipe Location of provider rendering services: practice address Location of patient: address on file Patient Identification confirmed using: Name, : Yes Telehealth method: video Patient verbally consented to treatment: Yes Patient verbally consented to billing insurance company: Yes Patient informed of any privacy concerns related to visit: Yes Minutes spent on Phone/Video with Pt.: 15 Assessment & Plan Assessment & Plan (1) Prostate cancer: Comment: 02/13 low volume, low risk disease enlarged prostate Code(s): C61 - Malignant neoplasm of prostate Category: Medical (2) Diarrhea: Code(s): R19.7 - Diarrhea, unspecified Category: Medical Plan Plan repeat biopsy Risks, benefits and alternatives to therapy were discussed. These include but are not limited to infection, bleeding, damage to local organs and tissues, need for further interventions. Anesthetic risks regarding cardiac arrhythmia, blood clots, and potential mortality were discussed. The patient understands the typical recovery time and the outpatient nature of the procedure. After consideration of these risks the patient gives full informed consent and they wish to move ahead with the procedure. Medications: New metronidazole 500 mg PO BID 5 days 10 tabs 0RF R19.7 - Diarrhea, unspecified Patient Instructions: Imaging studies, laboratory and physical exam results were discussed and reviewed in detail. No major barriers to patient understanding were identified. An opportunity to ask questions regarding the treatment plan was provided. All questions were answered. The patient expressed understanding and agreement with the above treatment plan. The patient is aware they should contact our office by phone for worsening of their current condition or the appearance of new urologic symptoms. Compliance is encouraged with any medications and followup testing that is ordered. It is a privilege to participate in the urologic care of your patient. If you have any questions or concerns regarding treatment for the above conditions, or other urologic issues, please do not hesitate to contact me. The office telephone contact is [phone]. This note is constructed using voice recognition software. While every effort has been made to ensure accuracy radio frequency technician errors may have been included. Yours sincerely, Dr Gavin Escobar MD, [facility] - Urology Providers of Expert, Compassionate Care for the Genitourinary System Coding Level of Care Code Tele Est Pt Level 4 (62699) Complex EM visit Add On G2211 Diagnoses Prostate cancer C61 Diarrhea R19.7
== END 2023-07-25 15:50 | disposition home or self-care (01) ==
LOC: HO.HUSH 15:03
PROVIDERS: PCP Physician Assistant Medical; Visit Provider Urology
DX: C61 Malignant neoplasm of prostate (principal); R19.7 Diarrhea, unspecified
CPT/HCPCS: 99214; G2211

== ENCOUNTER → 2023-07-25 15:03 | Outpatient (BNVA) | payer OTHER, SELFPAY | PROVIDERS: PCP Physician Assistant Medical; Visit Provider Urology ==

== ENCOUNTER → 2023-08-26 13:02 | Outpatient (BNV) | payer OTHER, SELFPAY | PROVIDERS: PCP Physician Assistant Medical; Visit Provider Urology | DX: R97.20 Elevated prostate specific antigen [PSA] (principal) | CPT/HCPCS: 55700; 76942 ==

== ENCOUNTER → 2023-08-26 13:02 | Day surgery (SDC) | payer OTHER, SELFPAY ==
--- NOTE | 2023-08-22 12:19 | HO.ANESPROP2 ---
Documented by User: Michelle Christopher NP 08/22/23 12:20 HPI - Anesthesia Eval Consult details Narrative: 68yo M for Prostate Needle Biopsy PMFSH Active Problems Active Problems: All Active Problems Diarrhea (Acute) Prostate cancer (Acute) Elevated PSA (Acute) Weak urinary stream (Acute) BPH w urinary obs/LUTS (Acute) Past Medical History Medical History (Updated 08/26/23 @ 14:19 by Marcia Garay RN) New onset atrial fibrillation BPH (benign prostatic hyperplasia) Glaucoma HTN (hypertension) Diabetes Surgical History Surgical History (Updated 08/26/23 @ 13:37 by Marcia Garay RN) No pertinent past surgical history Social History Social History Alcohol intake: current Alcohol intake frequency: holidays/special occasions only Patient Tobacco Use Status: Never used Tobacco Use of substances other than those prescribed or required for medical reasons: No Are you DNR?: No Advance Directives: No Advance Directives Information Provided: Yes Meds Allergies Allergy/AdvReac Type Severity Reaction Status Date / Time No Known Allergies Allergy Verified 08/26/23 13:38 Home Medications ?Medication ?Instructions ?Recorded ?Confirmed ?Last Taken ?Type metformin 1,000 mg tablet 1,000 mg PO BID 03/08/21 07/25/23 Unknown History brimonidine 0.2 % eye drops 1 drp ophthalmic-Right 06/16/21 07/25/23 Unknown History hydrochlorothiazide 50 mg tablet 50 mg PO DAILY 12/13/21 07/25/23 08/26/23 11:30 History lancets 28 gauge (FreeStyle #100 ea 12/13/21 07/25/23 Unknown History Lancets) lisinopril 40 mg tablet 40 mg PO QAM blood pressure 12/13/21 07/25/23 08/26/23 11:30 History latanoprost 0.005 % eye drops 0 drp ophthalmic (eye) 02/19/22 07/25/23 Unknown History carvedilol 12.5 mg tablet 12.5 mg PO BID 08/26/23 08/26/23 08/26/23 11:30 History empagliflozin 10 mg tablet 10 mg PO DAILY 08/26/23 08/26/23 08/23/23 History (Jardiance) Assessment and Plan Assessment Anesthesia Assessment: Chart Reviewed Documented by User: Javy Odom MD 08/26/23 14:41 PMFSH Past Medical History Medical History (Updated 08/26/23 @ 14:19 by Marcia Garay RN) New onset atrial fibrillation BPH (benign prostatic hyperplasia) Glaucoma HTN (hypertension) Diabetes Narrative: Heart rhythm on the monitor in SSS looks like afib/flutter. Asymptomatic, other than loss of energy. Family History Family history of problems with anesthesia: No Surgical History Surgical History (Updated 08/26/23 @ 13:37 by Marcia Garay RN) No pertinent past surgical history History of Problems with Anesthesia: No Social History Social History Alcohol intake: current Alcohol intake frequency: holidays/special occasions only Patient Tobacco Use Status: Never used Tobacco Use of substances other than those prescribed or required for medical reasons: No Are you DNR?: No Advance Directives: No Advance Directives Information Provided: Yes Meds Allergies Allergy/AdvReac Type Severity Reaction Status Date / Time No Known Allergies Allergy Verified 08/26/23 13:38 Home Medications ?Medication ?Instructions ?Recorded ?Confirmed ?Last Taken ?Type metformin 1,000 mg tablet 1,000 mg PO BID 03/08/21 07/25/23 Unknown History brimonidine 0.2 % eye drops 1 drp ophthalmic-Right 06/16/21 07/25/23 Unknown History hydrochlorothiazide 50 mg tablet 50 mg PO DAILY 12/13/21 07/25/23 08/26/23 11:30 History lancets 28 gauge (FreeStyle #100 ea 12/13/21 07/25/23 Unknown History Lancets) lisinopril 40 mg tablet 40 mg PO QAM blood pressure 12/13/21 07/25/23 08/26/23 11:30 History latanoprost 0.005 % eye drops 0 drp ophthalmic (eye) 02/19/22 07/25/23 Unknown History carvedilol 12.5 mg tablet 12.5 mg PO BID 08/26/23 08/26/23 08/26/23 11:30 History empagliflozin 10 mg tablet 10 mg PO DAILY 08/26/23 08/26/23 08/23/23 History (Jardiance) Exam Airway Mallampati Class: I TM Dist: >3cm Neck ROM: Full Loose/Missing/Broken Teeth: No Heart: ok Lungs: ok Assessment and Plan Assessment Anesthesia Assessment: Anesthesia Plan Discussed Final Anesthetic Review Family History of Problems with Anesthesia: No History of Problems with Anesthesia: No NPO: Yes ASA Class: III Final Preanesthetic Review: No Changes in Pt Med Stat, Meds/Allgs Chart Reviewed, Consent Obtained/Reviewed and Anes Risks/Benef Reviewed Patient Risk: Intermediate Procedure Risk: Low Anesthetic Plan Anesthetic Plan: Agree w/ Assess. and Plan and TIVA Disposition: Standard PACU
[2023-08-26 13:55] VITALS: BP 135/92; PULSE 87; RESP 15; TEMP 36.6; O2SAT 99; BMI 24.8
--- NOTE | 2023-08-26 13:56 | ECG_ITS ---
Test Reason : abnormal rhythm Blood Pressure : / mmHG Vent. Rate : 093 BPM Atrial Rate : 000 BPM P-R Int : 000 ms QRS Dur : 092 ms QT Int : 366 ms P-R-T Axes : 000 -09 016 degrees QTc Int : 455 ms Atrial fibrillation Abnormal ECG No previous ECGs available Referred By: Marcia Kelley Electronically Signed By:HAMMAD RUBIO MD
[2023-08-26 14:04] LABS: Glucose, Whole Blood 286 mg/dL (60-115)
--- NOTE | 2023-08-26 14:24 | PC.NURSE ---
new abnormal rhtyhm found, confirmed as new AFIB with ekg ordered by anes. no sx stated, no cp, no lightheadedness, no dizziness, no chest pains, no sob. anesthesia reviewed. hr 80's to 90's, on coreg already. anes spoke with dr delcid and deemed safe to proceed with bx. to follow up with pcp and get referred to technical training specialist.
[2023-08-26] MEDS: Lactated Ringers 1,000 ML 100 ML IVCONT (14:27)
--- NOTE | 2023-08-26 14:35 | PC.NURSE ---
anes also made aware at 1410 that poc was 285. no new orders
--- NOTE | 2023-08-26 14:54 | MHC.SHP ---
Pre-Procedural Eval Section A - 24 Hr Update-Section A only Date of Service: 08/26/23 The patient is an INPATIENT: No Changes since office visit: No Cold of Flu in the past 2 weeks, No New Medical Problems, No Changes in Medication and No Patient answered all questions The patient has been examined within 24 hours of the surgical procedure. The History & Physical has been completed within 30 days and I have reviewed it.: Yes Section B - Complete if H&P > 30 days Chief Complaint: Prostate cancer Details of Present Illness: Prostate cancer here for repeat biopsy Allergies: Allergies Allergy/AdvReac Type Severity Reaction Status Date / Time No Known Allergies Allergy Verified 08/26/23 13:38 Review of Systems Sugical H&P ROS: Negative: Constitution, Cardiovascular, Respiratory, Neurological, Psychiatric, Hem-Onc, Allergic/Immunologic, Gastrointestinal, Genitourinary, Musculoskeletal, Integumentary, Endocrine and Eyes/Ears/Nose/Throat Exam Surgical H&P Exam: Normal: HEENT, Normal: Heart, Normal: Lungs, Normal: Extremities, Normal: Abdomen, Normal: Skin and Normal: Neurological Plan Diagnosis/Plan: Unchanged (Prostate biopsy) I have reviewed the history and physical and performed a pertinent physical examination on my patient. No changes have occurred unless specified. Time Spent With Patient Time: Total time managing care of this patient today ____ minutes.
--- NOTE | 2023-08-26 15:20 | W.PM.OPN ---
Operative Note Operative Note Date of Service: 08/26/23 Narrative: Preoperative diagnosis: Prostate Cancer Postoperative diagnosis: Prostate Cancer Procedure: 1. transrectal ultrasound measurement of prostate 2. transrectal ultrasound-guided pudendal nerve block 3. transrectal ultrasound-guided prostate biopsy 12 core Surgeon: Dr. Gavin Escobar Anesthetic: 10cc 1% lidocaine Indications for procedure: Prostate Cancer Counselling: Technical aspects, risks and benefits of proposed procedure were discussed in full. All questions have been answered, written consent has been obtained and patient agrees to proceed. Procedure: The patient was brought into the procedure area and placed in a left lateral decubitus position. Patient identity confirmed. Perioperative antibiotics confirmed. Safety pause time out performed. KELBY performed to dilate rectal sphincter Iodine 10cc with 60 cc gel was placed per rectum to reduce infection risk using a catheter tip syringe. 8 Hz Kristina rectal end-fire ultrasound probe was placed transrectally without difficulty. The prostate was visualized. Seminal vesicles were normal. Prostate margins were clearly demarcated. Bladder was seen superiorly. No cystic structures were noted No calcifications were noted at the surgical margin The prostate was otherwise homogeneous in nature The prostate was measured in 3 dimensions Prostatic Width: 4.5 Prostatic Height: 4.6 Urethral Length:4.5 Total volume equals : 65 gm An ultrasound-guided pudendal nerve block was performed using a 22 gauge spinal needle in the sagittal plane. 4 cc of 1% lidocaine placed at the junction of each seminal vesicle and 2 cc placed at the apex of the prostate. A 12 core biopsy was performed with 6 cores each side using an 18 gauge prostate biopsy gun. Two cores were taken at the apex, mid and base. Cores were spaced between lateral and medial. He tolerated the procedure well, minimal rectal bleeding. Blood pressure remained stable following procedure. Was able to ambulate to bathroom after 5 minutes. Printed instructions regarding antibiotic use and common side effects from the procedure such as low-grade temperature, potential infection and bleeding were given Pathology: 12 core prostate biopsy.
[2023-08-26 15:27] VITALS: BP 97/68; PULSE 96; RESP 18; TEMP 36.4; O2SAT 95
[2023-08-26 15:43] VITALS: BP 120/79; PULSE 89; RESP 18; TEMP 36.4; O2SAT 96
== END | disposition home or self-care (01) ==
PROVIDERS: PCP Physician Assistant Medical; Visit Provider Urology
PROC: (CPT 55700; principal; 2023-08-26 14:30)
DX: C61 Malignant neoplasm of prostate (principal); I10 Essential (primary) hypertension; E11.9 Type 2 diabetes mellitus without complications; Z79.84 Long term (current) use of oral hypoglycemic drugs; Z79.899 Other long term (current) drug therapy
CPT/HCPCS: 55700; 76942; 82947; 88305; 93005; J1956; J2704; J2795; J3010

== ENCOUNTER → 2023-08-26 13:56 | Outpatient (BNV) | payer OTHER, SELFPAY | PROVIDERS: PCP Physician Assistant Medical; Visit Provider Internal Medicine Cardiovascular Disease | DX: R94.31 Abnormal electrocardiogram [ECG] [EKG] (principal) | CPT/HCPCS: 93010 ==

== ENCOUNTER 2023-09-05 10:51 | Outpatient (REF) | payer OTHER, SELFPAY ==
[2023-09-05 13:58] LABS: Prostate Specific Antigen 15.01 ng/mL (<0.05-4.0)
== END 2023-09-05 10:52 | disposition home or self-care (01) ==
LOC: HO.10HDL 10:51
PROVIDERS: Visit Provider Urology
DX: C61 Malignant neoplasm of prostate (principal); Z12.5 Encounter for screening for malignant neoplasm of prostate
CPT/HCPCS: 36415; 84153

== ENCOUNTER 2023-09-11 14:15 | Outpatient (AMB) | payer OTHER, SELFPAY ==
--- NOTE | 2023-09-11 15:17 | A.OFFVIS_ITS ---
Intake Visit Reasons: Prostate bx results Allergies No Known Allergies Allergy (Verified 08/26/23 13:38) HPI Comments Details: Clint is a pleasant male. He is a patient of Dr. Fink. He is seen for the following urologic conditions - lower urinary tract symptoms episode of urinary retention - Prostate cancer - medical care is part of ongoing therapy related to a complex condition Telemedicine Evaluation 15 min Consultation D[employer] Michael Video attempted Discussed current biopsy Does show progression of disease Still treatable in contained within prostate Will recommend assessment with radiation for short course hormones with SpaceOAR He is going to [facility] 4 month of September and we will treat this when he is back Possible cryotherapy candidate Lower urinary tract symptoms Initial symptoms - Progressive weakness of stream, Nocturia times 2-3 Current Symptoms - mild nocturia 1-2x, good daytime urinary control Current medications with finasteride and tamsulosin Prostate Cancer 09/1524 Grade Group 3, Low Volume PSA has advanced - 8.6 8% Prostate MRI shows increased size of lesion with posterior medial left peripheral zone 1.2 cm PI-RADS 4, right anterior transition zone 2.1 cm PI-RADS 5 Histologic grade: [place] score: 7 (4+3) (left mid lateral) 7 (3+4) (left base lateral) 6 (3+3) (left mid medial) % of pattern 4: 31% Tumor quantitation: Number cores positive: 3 Total number of cores: 13 % of tissue involved: 5% Periprostatic fat inv.: Not identified Seminal vesicle inv.: Not identified Perineural inv.: Present Lymphovascular invasion: Not identified 11/1322 Grade Group 1, T1c Diagnosed by Dr. Escobar 11/13 PSA 6.8 11% on finasteride, 07/15 5.8, 07/16 7.6 8% TRUS 70gm Histologic type: Adenocarcinoma, acinar type Charisma score: 3+3=6 LBL 30% Periprostatic fat inv.: Not identified, Seminal vesicle inv.: Not identified, Perineural inv.: Present, LVI: Not identified Genetics - 03/15 Prolaris - Low risk suitable for active surveillance [facility] Medical History New onset atrial fibrillation BPH (benign prostatic hyperplasia) Glaucoma HTN (hypertension) Diabetes Surgical History No pertinent past surgical history Social History Alcohol intake: current Alcohol intake frequency: holidays/special occasions only Patient Tobacco Use Status: Never used Tobacco Telehealth Telehealth Telehealth [facility]: [facility] Location of provider rendering services: practice address Location of patient: address on file Patient Identification confirmed using: Name, : Yes Telehealth method: video Patient verbally consented to treatment: Yes Patient verbally consented to billing insurance company: Yes Patient informed of any privacy concerns related to visit: Yes Minutes spent on Phone/Video with Pt.: 15 Assessment & Plan Assessment & Plan (1) Prostate cancer: Comment: 02/13 low volume, low risk disease enlarged prostate Code(s): C61 - Malignant neoplasm of prostate Category: Medical Plan Referral radiation oncology beginning October Follow-up with me end of October for definitive planning Orders: Referrals Radiation Oncology Referral C61 - Malignant neoplasm of prostate Patient Instructions: Imaging studies, laboratory and physical exam results were discussed and reviewed in detail. No major barriers to patient understanding were identified. An opportunity to ask questions regarding the treatment plan was provided. All questions were answered. The patient expressed understanding and agreement with the above treatment plan. The patient is aware they should contact our office by phone for worsening of their current condition or the appearance of new urologic symptoms. Compliance is encouraged with any medications and followup testing that is ordered. It is a privilege to participate in the urologic care of your patient. If you have any questions or concerns regarding treatment for the above conditions, or other urologic issues, please do not hesitate to contact me. The office telephone contact is [phone]. This note is constructed using voice recognition software. While every effort has been made to ensure accuracy cut roll machine offbearer errors may have been included. Yours sincerely, Dr Gavin Escobar MD, [facility] - Urology Providers of Expert, Compassionate Care for the Genitourinary System Coding Level of Care Code Tele Est Pt Level 4 (15988) Diagnoses Prostate cancer C61
== END 2023-09-11 16:07 | disposition home or self-care (01) ==
LOC: HO.HUSH 14:15
PROVIDERS: PCP Physician Assistant Medical; Visit Provider Urology
DX: C61 Malignant neoplasm of prostate (principal)
CPT/HCPCS: 99214

== ENCOUNTER → 2023-09-11 14:15 | Outpatient (BNVA) | payer OTHER, SELFPAY | PROVIDERS: PCP Physician Assistant Medical; Visit Provider Urology ==

== ENCOUNTER 2023-11-22 14:07 | Outpatient (AMB) | payer OTHER, SELFPAY ==
--- NOTE | 2023-11-22 14:09 | A.OFFVIS_ITS ---
Intake Visit Reasons: 2M Follow Up-Ref Dr Suero([facility] Onc/Rad) Intake Note: Patient is Present for Telephone Follow Up Referral Dr Suero Urology Med: Finasteride, Tamsulosin Antibiotic Allergy: none Blood Thinner:None Last PSA: 15.01 (08/2023) Manager Inventory Required: No Accompanied by: Self / Same As Patient Allergies No Known Allergies Allergy (Verified 08/26/23 13:38) HPI Comments Details: Clint is a pleasant male. He is a patient of Dr. Fink. He is seen for the following urologic conditions - lower urinary tract symptoms episode of urinary retention - Prostate cancer - medical care is part of ongoing therapy related to a complex condition Telemedicine Evaluation 15 min Consultation [employer] Michael Video attempted Underwent assessment for external beam radiation with Dr. Suero Agreement for short course hormones plus [employer] Will organized GnRH injection 2nd issue is sigmoid thickening on MRI Radiation oncology recommend colonoscopy in gastroscopy for clearance We will attempt to organize this Lower urinary tract symptoms Initial symptoms - Progressive weakness of stream, Nocturia times 2-3 Current Symptoms - mild nocturia 1-2x, good daytime urinary control Current medications with finasteride and tamsulosin Prostate Cancer 09/1524 Grade Group 3, Low Volume PSA has advanced - 8.6 8% Prostate MRI shows increased size of lesion with posterior medial left peripheral zone 1.2 cm PI-RADS 4, right anterior transition zone 2.1 cm PI-RADS 5 Histologic grade: Cordele score: 7 (4+3) (left mid lateral) 7 (3+4) (left base lateral) 6 (3+3) (left mid medial) % of pattern 4: 31% Tumor quantitation: Number cores positive: 3 Total number of cores: 13 % of tissue involved: 5% Periprostatic fat inv.: Not identified Seminal vesicle inv.: Not identified Perineural inv.: Present Lymphovascular invasion: Not identified 11/1322 Grade Group 1, T1c Diagnosed by Dr. Escobar 11/13 PSA 6.8 11% on finasteride, 07/15 5.8, 07/16 7.6 8% TRUS 70gm Histologic type: Adenocarcinoma, acinar type Charisma score: 3+3=6 LBL 30% Periprostatic fat inv.: Not identified, Seminal vesicle inv.: Not identified, Perineural inv.: Present, LVI: Not identified Genetics - 03/15 Prolaris - Low risk suitable for active surveillance PFSH Medical History New onset atrial fibrillation BPH (benign prostatic hyperplasia) Glaucoma HTN (hypertension) Diabetes Surgical History No pertinent past surgical history Social History Alcohol intake: current Alcohol intake frequency: holidays/special occasions only Patient Tobacco Use Status: Never used Tobacco Review of Systems Const All systems reviewed & are unremarkable except as noted in HPI and below Reports no additional complaints Resp Reports no additional complaints GI Reports no additional complaints Reports as per HPI Musc Reports no additional complaints Physical Exam Telemedicine evaluation Appropriate responses Regular breathing rate and rhythm HEENT Head: Yes normal to inspection Ears: hearing grossly normal bilaterally Eyes General: appearance normal, both eyes and all related structures Neck Neck: Yes normal visual inspection Chest Chest palpation & inspection: normal inspection of the chest Resp Effort & Inspection: normal respiratory effort and able to speak in complete sentences Telehealth Telehealth Telehealth Platform: [email or web address] Location of provider rendering services: practice address Location of patient: address on file Patient Identification confirmed using: Name, : Yes Telehealth method: video Patient verbally consented to treatment: Yes Patient verbally consented to billing insurance company: Yes Patient informed of any privacy concerns related to visit: Yes Minutes spent on Phone/Video with Pt.: 15 Assessment & Plan Assessment & Plan (1) Prostate cancer: Comment: 02/13 low volume, low risk disease enlarged prostate Code(s): C61 - Malignant neoplasm of prostate Category: Medical Plan GnRH Upper and lower endoscopy Patient Instructions: Imaging studies, laboratory and physical exam results were discussed and reviewed in detail. No major barriers to patient understanding were identified. An opportunity to ask questions regarding the treatment plan was provided. All questions were answered. The patient expressed understanding and agreement with the above treatment plan. The patient is aware they should contact our office by phone for worsening of their current condition or the appearance of new urologic symptoms. Compliance is encouraged with any medications and followup testing that is ordered. It is a privilege to participate in the urologic care of your patient. If you have any questions or concerns regarding treatment for the above conditions, or other urologic issues, please do not hesitate to contact me. The office telephone contact is [phone]. This note is constructed using voice recognition software. While every effort has been made to ensure accuracy supervisor nuclear medicine errors may have been included. Yours sincerely, Dr Gavin Escobar MD, [facility] - Urology Providers of Expert, Compassionate Care for the Genitourinary System Coding Level of Care Code Tele Est Pt Level 3 (19021) Diagnoses Prostate cancer C61
== END 2023-11-22 14:29 | disposition home or self-care (01) ==
LOC: HO.HUSH 14:07
PROVIDERS: PCP Physician Assistant Medical; Visit Provider Urology
DX: C61 Malignant neoplasm of prostate (principal)
CPT/HCPCS: 99442

== ENCOUNTER → 2023-11-22 14:07 | Outpatient (BNVA) | payer OTHER, SELFPAY | PROVIDERS: PCP Physician Assistant Medical; Visit Provider Urology ==

== ENCOUNTER 2024-01-20 11:19 | Outpatient (REF) | payer OTHER, SELFPAY | END 2024-01-20 11:20 | disposition home or self-care (01) | LOC: HO.LAB 11:19 | PROVIDERS: Visit Provider Urology | DX: Z13.89 Encounter for screening for other disorder (principal) ==

== ENCOUNTER 2024-02-18 08:13 | Outpatient (AMB) | payer OTHER, SELFPAY ==
--- NOTE | 2024-02-18 08:14 | MHC.OFFVIS ---
Intake Visit Reasons: URGENT COLO SCREEN Intake Note: Clint presents as a phone call for an URGENT colonoscopy screening due to prostate cancer and colon cancer. CC: States he wants to know what level of cancer that he has. Rig Manager Required: No Allergies No Known Allergies Allergy (Verified 02/18/24 08:14) HPI HPI URGENT COLO SCREEN: Details: HPI 68 yr old m with hx of prostate cancer referred for colonoscopy He has prostate cancer he had imaging with MRI 06/15 with thickening of sigmoid and rectum he has noted loose stools saw blood in stool but was some time ago he denies abdominal pain he has never had colonoscopy before ROS: Constitutional : No Weight loss, No Fever, No Chills ENT/Mouth : No sore throat, No Rhinorrhea Eyes: No Swelling, No Redness Cardiovascular : No Chest Pain, No SOB, No Edema Respiratory : No Cough, No Sputum, No Wheezing Gastrointestinal : see HPI Genitourinary : NO Dysuria, No Urinary Frequency, No Hematuria, No Urgency Musculoskeletal : no joint pain, No Myalgias, No Joint Swelling Skin : No Skin Lesions, No rash Neuro : No Weakness, No Numbness, No Dizziness, No Headache Psych : No Anxiety/Panic, No Depression Heme/Lymph: No Bruising, No Lymphadenopathy Endocrine : No Polyuria, No Polydipsia All other systems reviewed and are negative. Medical History BPH prostate cancer Surgical History prostate bx Family History no fh of crc Social History non smoker, no alcohol, no drug use A/P: 1/ Post prandial diarrhea with abn imaging and prostate ca PLAN: 1/ urgent egd and colo-suprep PFSH Medical History New onset atrial fibrillation BPH (benign prostatic hyperplasia) Glaucoma HTN (hypertension) Diabetes Surgical History Hx of colonoscopy No pertinent past surgical history Social History Alcohol intake: current Alcohol intake frequency: holidays/special occasions only Patient Tobacco Use Status: Never used Tobacco Telehealth Telehealth Telehealth Platform: [facility] Location of provider rendering services: practice address Location of patient: address on file Patient Identification confirmed using: Name, : Yes Telehealth method: voice only Patient verbally consented to treatment: Yes Patient verbally consented to billing insurance company: Yes Patient informed of any privacy concerns related to visit: Yes Minutes spent on Phone/Video with Pt.: 9 Assessment & Plan Assessment & Plan (1) Diarrhea: Code(s): R19.7 - Diarrhea, unspecified Category: Medical Plan: see above (2) Prostate cancer: Comment: 02/13 low volume, low risk disease enlarged prostate Code(s): C61 - Malignant neoplasm of prostate Category: Medical Plan: see above Medications: New sodium,potassium,mag sulfates 17.5-3.13-1.6 gram (Suprep Bowel Prep Kit) DILUTE; drink 1/2 at 6-8 pm and half at 11 PM- 1AM 354 mL 0RF ondansetron 4 mg PO Q8H PRN 7 tabs 0RF nausea and vomiting Coding Level of Care Code Tele New Pt Level 3 (12462) Diagnoses Diarrhea R19.7 Prostate cancer C61
== END 2024-02-18 11:34 | disposition home or self-care (01) ==
LOC: HO.HGI 08:13
PROVIDERS: PCP Physician Assistant Medical; Visit Provider Internal Medicine Gastroenterology
DX: R19.7 Diarrhea, unspecified (principal); C61 Malignant neoplasm of prostate
CPT/HCPCS: 99442

== ENCOUNTER 2024-03-12 09:24 | Outpatient (AMB) | payer OTHER, SELFPAY ==
--- NOTE | 2024-03-12 10:05 | MHC.OFFVIS ---
Intake Visit Reasons: discuss treatment/GNRH injection Intake Note: Patient is present for discuss treatment/gnrh injection Urology Medication:tamsulosin,finasteride Antibiotic Allergy:none Blood Thinner:none Forming Press Operator Required: No Allergies No Known Allergies Allergy (Verified 03/12/24 10:07) HPI Comments Details: Clint is a pleasant male. He is a patient of Dr. Fink. He is seen for the following urologic conditions - lower urinary tract symptoms episode of urinary retention - Prostate cancer - medical care is part of ongoing therapy related to a complex condition Prostate cancer follow-up Needs GnRH injection today UA 3+ glucose Encouraged to see primary care for diabetes assessment Will follow-up in 3 months with lab work On rectal exam does have sigmoid thickening Has had colonoscopy recently Lower urinary tract symptoms Initial symptoms - Progressive weakness of stream, Nocturia times 2-3 Current Symptoms - mild nocturia 1-2x, good daytime urinary control Current medications with finasteride and tamsulosin Prostate Cancer - 09/1524 Grade Group 3, Low Volume PSA has advanced - 8.6 8% Prostate MRI shows increased size of lesion with posterior medial left peripheral zone 1.2 cm PI-RADS 4, right anterior transition zone 2.1 cm PI-RADS 5 Histologic grade: Charisma score: 7 (4+3) (left mid lateral - 80%) 7 (3+4) (left base lateral - 20%) 6 (3+3) (left mid medial - 10%) % of pattern 4: 31% Tumor quantitation: Number cores positive: 3 Total number of cores: 13 % of tissue involved: 5% Periprostatic fat inv.: Not identified Seminal vesicle inv.: Not identified Perineural inv.: Present Lymphovascular invasion: Not identified 11/1322 Grade Group 1, T1c Diagnosed by Dr. Escobar 11/13 PSA 6.8 11% on finasteride, 07/15 5.8, 07/16 7.6 8% TRUS 70gm Histologic type: Adenocarcinoma, acinar type Charisma score: 3+3=6 LBL 30% Periprostatic fat inv.: Not identified, Seminal vesicle inv.: Not identified, Perineural inv.: Present, LVI: Not identified Genetics - 03/15 Prolaris - Low risk suitable for active surveillance [facility] Medical History New onset atrial fibrillation BPH (benign prostatic hyperplasia) Glaucoma HTN (hypertension) Diabetes Surgical History Hx of colonoscopy No pertinent past surgical history Social History Alcohol intake: current Alcohol intake frequency: holidays/special occasions only Patient Tobacco Use Status: Never used Tobacco Review of Systems Const Denies chills and Denies fever(s) Card Reports no additional complaints and Denies syncope Resp Denies cough GI Denies abdominal pain and Denies heartburn Reports as per HPI and Denies change in libido Neuro Denies syncope Psych Denies change in libido Endo Denies change in libido Physical Exam Const General: cooperative, healthy appearing, comfortable and no acute distress Orientation/consciousness: patient oriented x3 HEENT Face and sinus: Yes normal facial exam Mouth: moist mucous membranes Neck Neck: Yes normal visual inspection, Yes full ROM and Yes trachea midline Chest Chest palpation & inspection: normal inspection of the chest Resp Effort & Inspection: normal respiratory effort, able to speak in complete sentences and no respiratory distress GI Inspection: Yes normal to inspection Back/Spine/Pelvis Cervical Spine: normal cervical lordosis Thoracic/Lumbar Spine: thoracic and lumbar spine normal to inspection Skin General skin exam: no rashes or lesions noted Neuro General: patient oriented x3, gait normal, tone normal and moves all extremities Extrem General: Yes normal to inspection and Yes capillary refill normal Office Meds Eligard (6 month) 45 mg (6 month) subcutaneous syringe Performing Provider: Gavin Escobar MD Performing Location: [facility] [place] [facility] Administered by: Michael Childers LPN on 03/12/24 11:07 Dose Route Admin Location Dispensed Lot Number Expiration Date [facility] Chairman President And Chief Executive Officer 45 mg subcut right arm 45 mg [id number] 05/23/25 19865-303-86 [place]911. Results AMB Urinalysis, Automated UA Leukoctes 0 Nannette/uL Last Edit by PINKY Escobar on 03/12/24 10:09 UA Nitrite Negative Last Edit by PINKY Escobar on 03/12/24 10:09 UA Urobilinogen 0.2 mg/dL Last Edit by PINKY Escobar on 03/12/24 10:09 UA Protein 30 mg/dL Last Edit by PINKY Escobar on 03/12/24 10:09 UA pH 6.0 Last Edit by PINKY Escobar on 03/12/24 10:09 UA Blood 0 Mikhail/uL Last Edit by PINKY Escobar on 03/12/24 10:09 UA Specific Crosby 1.015 Last Edit by PINKY Escobar on 03/12/24 10:09 UA Ketone Negative Last Edit by PINKY Escobar on 03/12/24 10:09 UA Bilirubin 0 mg/dL Last Edit by PINKY Escobar on 03/12/24 10:09 UA Glucose 1000 mg/dL Last Edit by PINKY Escobar on 03/12/24 10:09 Results Reviewed Results Reviewed: Laboratory Last Values Urine pH (Auto) 6.0 03/12/24 10:09 Specific Crosby (Auto) 1.015 03/12/24 10:09 Urine Protein (Auto) 30 mg/dL 03/12/24 10:09 Glucose (UA)(Auto) 1000 mg/dL 03/12/24 10:09 Urine Ketones (Auto) Negative 03/12/24 10:09 Urine Blood (Auto) 0 Mikhail/uL 03/12/24 10:09 Urine Nitrite (Auto) Negative 03/12/24 10:09 Urine Bilirubin (Auto) 0 mg/dL 03/12/24 10:09 Urine Urobilinogen (Auto) 0.2 mg/dL 03/12/24 10:09 Leukocyte Esterase (Auto) 0 Nannette/uL 03/12/24 10:09 Assessment & Plan Assessment & Plan (1) Prostate cancer: Comment: 02/13 low volume, low risk disease enlarged prostate Code(s): C61 - Malignant neoplasm of prostate Category: Medical (2) Weak urinary stream: Code(s): R39.12 - Poor urinary stream Category: Medical Plan Three-month follow-up lab work Orders: Orders AMB Leuprolide Injection - Practice Supplied Today C61 - Malignant neoplasm of prostate, N13.8 - Other obstructive and reflux uropathy, N40.1 - Benign prostatic hyperplasia with lower urinary tract symptoms, R39.12 - Poor urinary stream, R97.20 - Elevated prostate specific antigen [PSA] Testosterone, Total 3 Months C61 - Malignant neoplasm of prostate AMB Urinalysis Automated Today Z13.9 - Encounter for screening, unspecified Prostate Specific Antigen 3 Months C61 - Malignant neoplasm of prostate Patient Instructions: Imaging studies, laboratory and physical exam results were discussed and reviewed in detail. No major barriers to patient understanding were identified. An opportunity to ask questions regarding the treatment plan was provided. All questions were answered. The patient expressed understanding and agreement with the above treatment plan. The patient is aware they should contact our office by phone for worsening of their current condition or the appearance of new urologic symptoms. Compliance is encouraged with any medications and followup testing that is ordered. It is a privilege to participate in the urologic care of your patient. If you have any questions or concerns regarding treatment for the above conditions, or other urologic issues, please do not hesitate to contact me. The office telephone contact is [phone]. This note is constructed using voice recognition software. While every effort has been made to ensure accuracy licensed land surveyor errors may have been included. Yours sincerely, Dr Gvain Escobar MD, [facility] - Urology Providers of Expert, Compassionate Care for the Genitourinary System Coding Level of Care Code Est Pt Level 4 (10453) Diagnoses Prostate cancer C61 Weak urinary stream R39.12
== END 2024-03-12 11:21 | disposition home or self-care (01) ==
PROVIDERS: PCP Physician Assistant Medical; Visit Provider Urology
DX: C61 Malignant neoplasm of prostate (principal); R97.20 Elevated prostate specific antigen [PSA]; N40.1 Benign prostatic hyperplasia with lower urinary tract symptoms; R39.12 Poor urinary stream; N13.8 Other obstructive and reflux uropathy; Z13.9 Encounter for screening, unspecified
CPT/HCPCS: 99214

== ENCOUNTER → 2024-03-12 09:24 | Outpatient (BNVA) | payer OTHER, SELFPAY | PROVIDERS: PCP Physician Assistant Medical; Visit Provider Urology | DX: C61 Malignant neoplasm of prostate (principal); R39.12 Poor urinary stream | CPT/HCPCS: 81003; 96402; 99212; J9217 ==

== ENCOUNTER → 2024-03-31 14:38 | Outpatient (BNVA) | payer OTHER, SELFPAY | PROVIDERS: PCP Physician Assistant Medical; Visit Provider Urology | DX: C61 Malignant neoplasm of prostate (principal); N40.1 Benign prostatic hyperplasia with lower urinary tract symptoms; N13.8 Other obstructive and reflux uropathy; R39.12 Poor urinary stream | CPT/HCPCS: 96402 ==